=== PATIENT | female | born 1955 | race Two or more races ===

== ENCOUNTER 2024-01-12 12:56 | Emergency (ER) | payer OTHER ==
[~2024-01-12] VITALS: Ht 154.9 cm; Wt 49.6 kg
[2024-01-12 12:56] VITALS: BP 151/100; RESP 18; O2SAT 98
[2024-01-12 13:02] VITALS: PULSE 105
[2024-01-12 13:19] LABS: Basophils # (auto) 0 10 ^3/uL (0-0.2); Eosinophils # (auto) 0.3 10 ^3/uL (0-0.8); Lymphocytes # (auto) 1.9 10 ^3/uL (0.4-5.4); Lymphocytes % (auto) 26.8 % (10.0-50.0); Monocytes # (auto) 0.5 10 ^3/uL (0-1.3)
[2024-01-12 13:20] LABS: Basophils % (auto) 0.4 % (0.0-2.0); Eosinophils % (auto) 4.1 % (0.0-7.0); Hematocrit 42.7 % (36.0-46.0); Hemoglobin 14.1 g/dL (12.2-16.2); Mean Corpuscular Hemoglobin 29.9 pg (28.0-32.0); Mean Corpuscular Hgb Conc. 32.9 g/dL (32.0-36.0); Mean Corpuscular Volume 90.9 fL (80.0-100.0); Monocytes % (auto) 7.6 % (0.0-12.0); Neutrophils # (auto) 4.4 10 ^3/uL (1.6-8.6); Neutrophils % (auto) 61.1 % (37.0-80.0); Nucleated Red Blood Cells % 0.1 %; Red Cell Distribution Width 13.8 % (11.8-14.3); White Blood Cell 7.2 10^3/uL (4.4-10.8)
[2024-01-12 13:28] LABS: Chloride 108 mmol/L (98-107); Potassium 3.9 mmol/L (3.5-5.1); Sodium 140 mmol/L (136-145)
[2024-01-12 13:29] LABS: Anion Gap 8 (5-15); Calcium 10.4 mg/dL (8.5-10.1); Carbon Dioxide 24 mmol/L (20-30)
[2024-01-12 13:34] LABS: BUN/Creatinine Ratio 14.7 (10.0-20.0); Blood Urea Nitrogen 11 mg/dL (9-23); Glucose 169 mg/dL (74-106)
[2024-01-12 14:02] LABS: Urine Bacteria FEW /hpf (None Seen); Urine Blood Negative /uL (Negative); Urine Clarity Clear (Clear); Urine Color Yellow (Yellow); Urine Hyaline Cast FEW /lpf (0 - 2); Urine Mucus FEW (None Seen); Urine Protein, UAD 1+ (Negative); Urine Specific Gravity 1.023 (1.001-1.035); Urine Urobilinogen 2 mg/dL (Negative); Urine WBC 4 /hpf (0 - 5); Urine pH 5.5 (5.0-9.0)
== END 2024-01-12 15:00 | disposition left against medical advice (07) ==
LOC: ER 12:56
DX: R73.9 Hyperglycemia, unspecified (principal)
CPT/HCPCS: 36415; 80048; 81001; 84484; 85025; 93005